=== PATIENT | male | born 1945 | race Caucasian/White ===

== ENCOUNTER 2016-09-03 14:02 | Emergency (ER) | payer MEDICARE, OTHER ==
--- NOTE | ~2016-09-03 | ER ---
PATIENT'S NAME: JUNIOR ESTEBAN [facility] AGE: 70 Y [address] ROOM: [place] [id number] LOCATION: [facility] ADMIT DATE: 09/03/2016 ER/Outpatient Report DISCHARGE DATE: 09/03/2016 FAMILY PHYSICIAN: Junior Forde MD ATTENDING PHYSICIAN: Stacy Davidson Time of Arrival: 1402 hours. Time of Evaluation: 1410 hours. CHIEF COMPLAINT: Left hand laceration. HISTORY OF PRESENT ILLNESS: This is a 70-year-old male, who presents to the ER with a left hand laceration. It happened approximately an hour prior to arrival. The patient states he was cutting the limbs of a tree with a saw, and it slipped and hit him in the hand. He sustained lacerations to the dorsal aspect of his hand. He denies any other injury at this time. He states he is up-to-date on his tetanus shot. ALLERGIES: NO KNOWN ALLERGIES. MEDICATIONS: Please see medication list in nurse's notes. PAST MEDICAL HISTORY: Negative. PAST SURGICAL HISTORY: None. SOCIAL HISTORY: Denies smoking, drug, or alcohol use. REVIEW OF SYSTEMS: CONSTITUTIONAL: Denies any change in weight or fatigue. MUSCULOSKELETAL: He is complaining of left hand pain. HEMATOLOGIC: No easy bruising or bleeding. SKIN: He has lacerations to his left hand. PHYSICAL EXAMINATION: VITAL SIGNS: Height 6 feet 2 inches stated, weight 117.8 kg taken, blood pressure is 142/82, pulse 70, respirations 17, temperature 97.9 degrees tympanically, and saturations 93% on room air. Ike Coma Score is 15. PATIENT'S NAME: JUNIOR ESTEBAN [facility] AGE: 70 Y [address] ROOM: [place], [place] [address] LOCATION: [facility] ADMIT DATE: 09/03/2016 ER/Outpatient Report DISCHARGE DATE: 09/03/2016 FAMILY PHYSICIAN: Junior Forde MD ATTENDING PHYSICIAN: Stacy Davidson GENERAL: Alert, calm, well-developed 70-year-old, in mild distress. EXTREMITIES: No clubbing or cyanosis. He does have full range of motion of his left hand. The patient states that he has good sensation distally to all of his fingers. He has good strength in his index and thumb as well. SKIN: He has 2 lacerations to the dorsal aspect of his left hand, both measuring 4 cm. One is at the base of his thumb, and one is at the base of his index finger. LABORATORY DATA AND X-RAYS: Labs: None were done. X-rays of the left hand show no fracture. IMPRESSION: Two lacerations, both measuring 4 cm to the dorsal aspect of the left hand. ASSESSMENT AND PLAN: I did cleanse each site with normal saline and numbed the site with 1% lidocaine with epinephrine. Flushed out the lacerations with normal saline. His lacerations were superficial. There was no tendon or ligament involvement, so I did close the lacerations with 4-0 Ethilon. The patient did tolerate this well. We did place antibiotic ointment bandage to the hand. We will dismiss him to home with a wound care handout. I am going to cover him with Keflex to use as directed. He should follow up with his primary care physician in 10 days for suture removal. The patient understands and agrees with care. BILL MEYER PA-C FOR MD HIMANSHU FENG/manjula /[id number] d: 09/04/16 0054 t: 09/07/16 0913, OUTPATIENT REPORT
== END 2016-09-03 15:39 | disposition disaster alternative care site (69) ==
LOC: GACC 14:02
PROC: 0HQGXZZ Repair Left Hand Skin, External Approach (ICD-10-PCS; principal; 2016-09-03)
DX: S61.412A Laceration without foreign body of left hand, initial encounter (principal); Z79.899 Other long term (current) drug therapy; W27.8XXA Contact with other nonpowered hand tool, initial encounter